=== PATIENT | female | born 1940 | race Caucasian/White ===

== ENCOUNTER 2018-10-16 20:28 | Inpatient (IN) | payer MEDICARE ==
[~2018-10-16] VITALS: Ht 167.6 cm; Wt 112.4 kg
[2018-10-16 22:11] VITALS: BP 147/98
[2018-10-16] MEDS ORDERED: PRED2.5T PO (23:33)
[2018-10-16] MEDS ORDERED: BUPR150T13 PO (23:33)
[2018-10-16] MEDS ORDERED: METH25VI62 INJ (23:33)
[2018-10-16] MEDS ORDERED: BIOT10TA PO (23:33)
[2018-10-16] MEDS ORDERED: ACID1TAB2 PO (23:33)
[2018-10-16] MEDS ORDERED: HYDR-3307 PO (23:33)
[2018-10-16] MEDS ORDERED: GABA300C10 PO (23:33)
[2018-10-16] MEDS ORDERED: FLEC100T PO (23:33)
[2018-10-16] MEDS ORDERED: MULT-478 PO (23:33)
[2018-10-16] MEDS ORDERED: LEVO75TA5 PO (23:33)
[2018-10-16] MEDS ORDERED: FOLI-17 PO (23:33)
[2018-10-16] MEDS ORDERED: CYAN25003 PO (23:33)
[2018-10-16] MEDS ORDERED: OMEP-110 PO (23:33)
[2018-10-16] MEDS ORDERED: GABA600T7 PO (23:33)
[2018-10-16] MEDS ORDERED: ZINC50TA40 PO (23:33)
[2018-10-16] MEDS ORDERED: LOSA50TA14 PO (23:33)
[2018-10-16] MEDS ORDERED: ETAN50DI2 INJ (23:33)
[2018-10-16] MEDS ORDERED: HYDR12.517 PO (23:33)
[2018-10-16] MEDS ORDERED: IRON18TA PO (23:33)
[2018-10-16] MEDS ORDERED: DILT180C59 PO (23:33)
[2018-10-16] MEDS ORDERED: WARF6TAB47 PO (23:33)
[2018-10-16] MEDS ORDERED: CALC-670 PO (23:33)
[2018-10-17] MEDS ORDERED: HEPARIN 5,000 UNITS/ML, 1ML IV ONE (00:30)
[2018-10-17] MEDS ORDERED: HEPARIN 25,000 UNITS/500ML PMX 500 ML IV PRN (00:30)
[2018-10-17] MEDS ORDERED: HEPARIN 5,000 UNITS/ML, 1ML IV PRN (00:30)
[2018-10-17] MEDS ORDERED: FILTER 0.22 MICRON IV PRN (00:30)
[2018-10-17] MEDS ORDERED: AMIODARONE 900 MG in DEXTROSE 5% 482 ML IV PRN (00:30)
[2018-10-17 00:46] LABS: BASOPHILS # (AUTO) 0.04 x10^3/uL (0-0.1); BASOPHILS % (AUTO) 1 % (0-1); EOSINOPHILS # (AUTO) 0.12 x10^3/uL (0-0.4); EOSINOPHILS % (AUTO) 2 % (1-7); LYMPHOCYTES # (AUTO) 0.94 x10^3/uL (1-3.4); LYMPHOCYTES % (AUTO) 14 % (22-44); MD NO; MEAN CORPUSCULAR HEMOGLOBIN 34.7 pg (27.0-34.8); MEAN CORPUSCULAR HGB CONC 33.7 g/dL (32.4-35.8); MEAN CORPUSCULAR VOLUME 102.9 fL (80-100); MONOCYTES % (AUTO) 12 % (2-9); NEUTROPHILS # (AUTO) 4.95 x10^3/uL (1.8-6.8); NEUTROPHILS % (AUTO) 72 % (42-75); PLATELET COUNT 114 x10^3/uL (130-400); RED BLOOD COUNT 4.06 x10^6/uL (3.82-5.3); RED CELL DISTRIBUTION WIDTH 14.7 % (9.6-15.2)
[2018-10-17 00:56] LABS: INTERNATIONAL NORMALIZED RATIO 1.56 (0.93-1.1); PROTHROMBIN TIME 16.1 Seconds (9.6-11.5)
[2018-10-17 01:00] LABS: ALANINE AMINOTRANSFERASE 36 U/L (12-78); ALBUMIN 3.5 g/dL (3.4-5.0); ANION GAP 4 mmol/L (5-15); CALCIUM 8.6 mg/dL (8.5-10.1); CHLORIDE 107 mmol/L (98-107); CREATININE 0.77 mg/dL (0.55-1.02)
[2018-10-17 01:10] LABS: ALKALINE PHOSPHATASE 51 U/L (45-117); BILIRUBIN,TOTAL 0.3 mg/dL (0.2-1.0); TOTAL PROTEIN 6.5 g/dL (6.4-8.2)
[2018-10-17] MEDS: HYDROcodone/APAP 10/325 MG TABLET PO PRN ×5 (01:42→22:54)
[2018-10-17 01:57] VITALS: BP 102/66
[2018-10-17] MEDS: LEVOTHYROXINE 75 MCG TABLET PO SCH (05:31)
[2018-10-17] MEDS: OMEPRAZOLE 20 MG CAPSULE.DR PO SCH ×2 (05:31→16:02)
[2018-10-17 08:45] VITALS: BP 112/68
[2018-10-17] MEDS ORDERED: HYDROCHLOROTHIAZIDE 12.5 MG CAPSULE PO SCH (09:00)
[2018-10-17] MEDS: FOLIC ACID 1 MG TABLET PO SCH (09:44)
[2018-10-17] MEDS: LOSARTAN 50MG TABLET PO SCH (09:44)
[2018-10-17] MEDS: LACTOBACILLUS CHEW TABLET PO SCH (09:44)
[2018-10-17] MEDS: BUPROPION SR 150 MG TABLET PO SCH ×2 (09:44→19:56)
[2018-10-17] MEDS: GABAPENTIN 300 MG CAPSULE PO SCH ×2 (12:17→20:03)
[2018-10-17 15:58] VITALS: BP 141/74
[2018-10-17] MEDS ORDERED: WARFARIN 7.5 MG TABLET PO-COUM ONE (18:00)
[2018-10-17 19:47] VITALS: BP 147/84
[2018-10-18] MEDS: HYDROcodone/APAP 10/325 MG TABLET PO PRN ×5 (00:01→23:03)
[2018-10-18] MEDS ORDERED: HEPARIN 25,000 UNITS/500ML PMX 500 ML IV PRN (00:30)
[2018-10-18 03:45] VITALS: BP 119/63
[2018-10-18] MEDS: LEVOTHYROXINE 75 MCG TABLET PO SCH (05:37)
[2018-10-18] MEDS: OMEPRAZOLE 20 MG CAPSULE.DR PO SCH ×2 (05:37→15:44)
[2018-10-18 06:37] LABS: INTERNATIONAL NORMALIZED RATIO 1.16 (0.93-1.1); PROTHROMBIN TIME 12.1 Seconds (9.6-11.5)
[2018-10-18 07:50] VITALS: BP 110/76
[2018-10-18] MEDS: LOSARTAN 50MG TABLET PO SCH (08:17)
[2018-10-18] MEDS: LACTOBACILLUS CHEW TABLET PO SCH (08:17)
[2018-10-18] MEDS: BUPROPION SR 150 MG TABLET PO SCH ×2 (08:18→21:06)
[2018-10-18] MEDS: FOLIC ACID 1 MG TABLET PO SCH (08:18)
[2018-10-18] MEDS ORDERED: ONDANSETRON 2MG/ML, 2ML IVPush PRN (09:00)
[2018-10-18] MEDS: GABAPENTIN 300 MG CAPSULE PO SCH ×2 (12:10→21:05)
[2018-10-18] MEDS ORDERED: FENTANYL PF 250 MCG/5ML ONE (12:39)
[2018-10-18] MEDS ORDERED: MIDAZOLAM 1 MG/ML, 2ML ONE (12:39)
[2018-10-18] MEDS ORDERED: DEXAMETHASONE 4 MG/ML, 1ML ONE (12:51)
[2018-10-18] MEDS ORDERED: ONDANSETRON 2MG/ML, 2ML ONE (13:21)
[2018-10-18] MEDS ORDERED: ACETAMINOPHEN 325 MG TABLET PO PRN ×2 (13:30→14:00)
[2018-10-18] MEDS ORDERED: HYDROmorphone 2 MG/ML, 1ML IVPush PRN (14:00)
[2018-10-18] MEDS ORDERED: MIDAZOLAM 1 MG/ML, 2ML IV PRN (14:00)
[2018-10-18] MEDS ORDERED: OXYcodone 5 MG/5 ML ORAL.SOL UDC PO PRN (14:00)
[2018-10-18] MEDS ORDERED: FENTANYL PF 100 MCG/2ML IV PRN (14:00)
[2018-10-18] MEDS ORDERED: PROMETHAZINE 12.5 MG SUPP PR PRN (14:00)
[2018-10-18] MEDS ORDERED: DIAZEPAM 5 MG/ML, 2ML IVPush PRN (14:00)
[2018-10-18] MEDS ORDERED: ONDANSETRON ODT 8 MG PO PRN (14:00)
[2018-10-18] MEDS ORDERED: HALOPERIDOL 5 MG/ML IV PRN (14:00)
[2018-10-18] MEDS ORDERED: PROMETHAZINE 25 MG/ML, 1ML IV PRN (14:00)
[2018-10-18] MEDS ORDERED: LABETALOL 5MG/ML, 20ML IV PRN (14:00)
[2018-10-18] MEDS ORDERED: MEPERIDINE/PF 25MG/0.5ML IVPush PRN (14:00)
[2018-10-18] MEDS ORDERED: ONDANSETRON 2MG/ML, 2ML IV PRN (14:00)
[2018-10-18] MEDS ORDERED: ALBUTEROL SULFATE 2.5 MG/3 ML NPPB PRN (14:00)
[2018-10-18] MEDS ORDERED: MORPHINE SULFATE 4 MG/ML, 1ML IVPush PRN (14:00)
[2018-10-18] MEDS ORDERED: EPHEDRINE 50 MG/ML, 1ML IVPush PRN (14:00)
[2018-10-18] MEDS ORDERED: hydrALAzine 20 MG/ML, 1ML IV PRN (14:00)
[2018-10-18] MEDS ORDERED: OXYcodone 5 MG/5 ML ORAL.SOL UDC ONE (14:13)
[2018-10-18] MEDS ORDERED: SUCCINYLCHOLINE 20 MG/ML, 10ML ONE (14:42)
[2018-10-18] MEDS ORDERED: ROCURONIUM 10MG/ML,5ML ONE (14:42)
[2018-10-18] MEDS ORDERED: PHENYLEPHRINE 10 MG/ML ONE (14:42)
[2018-10-18] MEDS ORDERED: PROPOFOL 10 MG/ML, 20ML ONE (14:42)
[2018-10-18 14:58] VITALS: BP 130/77
[2018-10-18] MEDS: DABIGATRAN 150 MG CAPSULE PO SCH (15:44)
[2018-10-18] MEDS: morphine SULFATE 10 MG/ML, 1ML IVPush PRN ×2 (15:45→16:20)
[2018-10-18 19:26] VITALS: BP 104/51
[2018-10-18] MEDS: AMIODARONE 200 MG TABLET PO SCH (21:06)
[2018-10-19 01:45] VITALS: BP 108/54
[2018-10-19] MEDS: HYDROcodone/APAP 10/325 MG TABLET PO PRN ×2 (03:35→07:44)
[2018-10-19] MEDS: OMEPRAZOLE 20 MG CAPSULE.DR PO SCH (05:51)
[2018-10-19] MEDS: LEVOTHYROXINE 75 MCG TABLET PO SCH (05:51)
[2018-10-19 06:13] LABS: INTERNATIONAL NORMALIZED RATIO 1.14 (0.93-1.1); PROTHROMBIN TIME 11.9 Seconds (9.6-11.5)
[2018-10-19] MEDS: LOSARTAN 50MG TABLET PO SCH (09:47)
[2018-10-19] MEDS: BUPROPION SR 150 MG TABLET PO SCH (09:47)
[2018-10-19] MEDS: DABIGATRAN 150 MG CAPSULE PO SCH (09:48)
[2018-10-19] MEDS: FOLIC ACID 1 MG TABLET PO SCH (09:48)
[2018-10-19] MEDS: AMIODARONE 200 MG TABLET PO SCH (09:48)
[2018-10-19] MEDS: LACTOBACILLUS CHEW TABLET PO SCH (09:48)
[2018-10-19 09:58] VITALS: BP 125/67
[2018-10-19] MEDS ORDERED: AMIO200T42 PO (10:24)
[2018-10-19] MEDS ORDERED: APIX5TAB PO (10:48)
== END 2018-10-19 12:20 | disposition home or self-care (01) | DRG 274 ==
LOC: 5SO 21:59 → DCLOUNGE 10-19 11:56
PROVIDERS: ADMIT Internal Medicine Cardiovascular Disease; ATTEND Internal Medicine Cardiovascular Disease
PROC: 4A0234Z Measurement of Cardiac Electrical Activity, Percutaneous Approach (ICD-10-PCS; 2018-10-18)
PROC: 02K83ZZ Map Conduction Mechanism, Percutaneous Approach (ICD-10-PCS; 2018-10-18)
PROC: 02583ZZ Destruction of Conduction Mechanism, Percutaneous Approach (ICD-10-PCS; principal; 2018-10-18 11:30)
DX: I48.3 Typical atrial flutter (principal); Z68.41 Body mass index [BMI] 40.0-44.9, adult; D68.69 Other thrombophilia; I10 Essential (primary) hypertension; M06.9 Rheumatoid arthritis, unspecified; M35.3 Polymyalgia rheumatica; E66.01 Morbid (severe) obesity due to excess calories; D69.6 Thrombocytopenia, unspecified; G89.29 Other chronic pain; I48.0 Paroxysmal atrial fibrillation; K21.9 Gastro-esophageal reflux disease without esophagitis; K52.9 Noninfective gastroenteritis and colitis, unspecified; M54.9 Dorsalgia, unspecified; Z96.653 Presence of artificial knee joint, bilateral; Z88.2 Allergy status to sulfonamides; Z79.01 Long term (current) use of anticoagulants; Z86.718 Personal history of other venous thrombosis and embolism; Z90.710 Acquired absence of both cervix and uterus; Z95.0 Presence of cardiac pacemaker; Z98.84 Bariatric surgery status; Z90.49 Acquired absence of other specified parts of digestive tract
CPT/HCPCS: 36415; 80053; 84443; 85025; 85520; 85610; 93005; 93613; 93621; 93653; C1894; G0378; J1100; J1644; J2250; J2405; J2704; J3010; C1730; C2630; J0282; J0330; J2270; J2370; J7060; J7512